=== PATIENT | male | born 1980 | race Two or more races ===

== ENCOUNTER 2022-01-11 19:31 | Emergency (ER) | payer OTHER ==
[~2022-01-11] VITALS: Ht 177.8 cm; Wt 57.6 kg
[2022-01-11] MEDS ORDERED: TYLENOL (20:02)
== END 2022-01-11 23:01 | disposition home or self-care (01) ==
LOC: ER 19:31
DX: U07.1 COVID-19 (principal); A49.3 Mycoplasma infection, unspecified site; Z88.6 Allergy status to analgesic agent